=== PATIENT | male | born 1960 | race Two or more races ===

== ENCOUNTER 2018-03-28 16:37 | Emergency (ER) | payer MEDICAID, OTHER ==
[~2018-03-28] VITALS: Ht 193 cm; Wt 129.3 kg
[2018-03-28 16:58] VITALS: BP 140/72
[2018-03-28] MEDS ORDERED: TDAP [DIPH/PERTUSSIS/TET] 0.5 ML VIAL IM ONE ×2 (17:23→17:30)
[2018-03-28] MEDS ORDERED: IBUPROFEN 600 MG TABLET PO ONE ×2 (18:30→18:45)
[2018-03-28] MEDS ORDERED: LIDOCAINE 1% INJ 50 ML MDV IJ ONE (18:30)
[2018-03-28] MEDS ORDERED: LIDOCAINE HCL/MPF 1% 30 ML VIAL IJ ONE (18:43)
--- NOTE | 2018-03-28 19:40 | NUR ---
PER MARIN LOZANO TO CANCEL TDAP IM ORDER, PT HAS ALREADY HAD IT RECENTLY
== END 2018-03-28 19:54 | disposition home or self-care (01) ==
LOC: ER 16:43
DX: S61.412A Laceration without foreign body of left hand, initial encounter (principal); R56.9 Unspecified convulsions; I10 Essential (primary) hypertension; H54.8 Legal blindness, as defined in USA; Z88.5 Allergy status to narcotic agent; Z60.2 Problems related to living alone; W25.XXXA Contact with sharp glass, initial encounter; Y93.89 Activity, other specified; Y92.89 Other specified places as the place of occurrence of the external cause; Y99.8 Other external cause status
CPT/HCPCS: 12002; 73130; 99283; A4606; A6402; A6403; J3490; Z7610; 90715

== ENCOUNTER 2018-05-11 12:29 | Emergency (ER) | payer MEDICAID ==
[~2018-05-11] VITALS: Ht 193 cm; Wt 129.3 kg
--- NOTE | 2018-05-11 12:45 | NUR ---
[id number] [facility] C/O DIZZINESS AND WEAKNESS X 1 HOUR. AXOX3, DENIES [place], [place], SOB
[2018-05-11 13:10] LABS: BASOPHILS # (AUTO) 0.1 /CMM (0.0-0.2); BASOPHILS % (AUTO) 0.8 % (0.0-2.0); EOSINOPHILS % (AUTO) 1.8 % (0.0-6.0); HEMATOCRIT 43 % (39-51); HEMOGLOBIN 14.4 g/dL (13.5-17.5); LYMPHOCYTES % (AUTO) 21.5 % (20.0-44.0); MEAN CORPUSCULAR HGB CONC 33 g/dl (31.0-36.0); MEAN CORPUSCULAR VOLUME 90 fL (80-96); MONOCYTES # (AUTO) 0.7 /CMM (0.1-1.30); NEUTROPHILS # (AUTO) 6.2 /CMM (1.8-8.9); NEUTROPHILS % (AUTO) 67.9 % (43.0-81.0); PLATELET COUNT (AUTO) 175 /CMM (150-450); RED BLOOD CELL COUNT(AUTO) 4.82 MIL/uL (4.5-6.0); WHITE BLOOD COUNT (AUTO) 9.1 K/uL (4.3-11.0)
[2018-05-11 13:21] LABS: CALCIUM, SERUM 9.4 mg/dL (8.5-10.1); CARBON DIOXIDE 28 mmol/L (21-32); CHLORIDE 107 mmol/L (98-107); CREATININE 0.9 mg/dL (0.6-1.3); GLUCOSE 115 mg/dL (74-106); POTASSIUM 3.3 mmol/L (3.5-5.1); SODIUM SERUM 147 mmol/L (136-145); UREA NITROGEN, BLOOD 18 mg/dL (7-18)
[2018-05-11 13:27] LABS: APPEARANCE,URINE Clear (CLEAR); BILIRUBIN,URINE SMALL (NEGATIVE); BLOOD, URINE Small Ery/uL (NEGATIVE); KETONES,URINE 15 (NEGATIVE); LEUKOCYTE ESTERASE ,URINE Negative (NEGATIVE); NITRITE, URINE Negative (NEGATIVE); PH,URINE 5.5 (5.0-8.0); PROTEIN,URINE 100 mg/dl (NEGATIVE); UGLUCOSE Negative (NEGATIVE); UROBILINOGEN,URINE 0.2 EU/dL (0.2)
[2018-05-11 13:27] LABS: ALANINE AMINOTRANSFERASE 62 U/L (12-78); ALBUMIN 4.3 g/dL (3.4-5.0); ALCOHOL, BLOOD < 3 mg/dL (0-0); ALKALINE PHOSPHATASE 82 U/L (46-116); ASPARTATE AMINOTRANSFERASE 83 U/L (15-37); BILIRUBIN,DIRECT 0.1 mg/dL (0.0-0.2); BILIRUBIN,TOTAL 0.7 mg/dL (0.2-1.0); TOTAL PROTEIN, SERUM 8.3 g/dL (6.4-8.2)
[2018-05-11 13:28] LABS: SALICYLATE 2.7 mg/dL (2.8-20.0)
[2018-05-11 13:29] LABS: ACETAMINOPHEN 0 ug/ml (10-30)
[2018-05-11 13:30] LABS: COLOR,URINE Dark Yellow (YELLOW)
[2018-05-11 13:41] LABS: MUCUS,URINE Moderate /LPF (None Seen); SQUAMOUS EPITHELIAL CELL,UR None Seen /HPF (None Seen)
[2018-05-11 13:42] LABS: BACTERIA,URINE Rare /HPF (None Seen); WBC,URINE 0-2 /HPF (0-3)
[2018-05-11 14:53] VITALS: BP 166/82
== END 2018-05-11 14:55 | disposition home or self-care (01) ==
LOC: ER 12:35
DX: F15.10 Other stimulant abuse, uncomplicated (principal); F14.10 Cocaine abuse, uncomplicated; R56.9 Unspecified convulsions; I10 Essential (primary) hypertension; H54.8 Legal blindness, as defined in USA; Z88.6 Allergy status to analgesic agent; Z88.5 Allergy status to narcotic agent; Z60.2 Problems related to living alone
CPT/HCPCS: 36415; 80048-TC; 80076-TC; 80305; 81000-TC; 85025-TC; G0480